=== PATIENT | female | born 1970 | race Caucasian/White ===

== ENCOUNTER 2016-07-27 19:07 | Inpatient (IN) | payer OTHER, MEDICARE ==
[~2016-07-27] VITALS: Ht 162.6 cm; Wt 86.2 kg
--- NOTE | 2016-07-27 20:17 | ED GENERAL ADULT ---
History of Present Illness General Chief Complaint: General Adult Stated Complaint: DIOGNOSED WITH STAPH INFECTION AT [facility], NO RELIE Source: patient, family Exam Limitations: history of tbi Vital Signs & Intake/Output Vital Signs & Intake/Output Vital Signs Date Time Temp Pulse Resp B/P Pulse O2 O2 Flow FiO2 Ox Delivery Rate 07/29 1424 97.8 72 18 120/80 94 Room Air 07/29 1023 112/86 07/29 0703 97.6 67 20 130/80 98 Room Air 07/28 2205 98.3 79 20 110/64 96 Room Air ED Intake and Output 07/29 0000 07/28 1200 Intake Total 1370 340 Output Total Balance 1370 340 Intake, IV 170 100 Intake, Oral 1200 240 Patient 190 lb Weight Allergies Coded Allergies: Penicillins (Severe, HIVES 07/27/16) acetaminophen (From Vicodin) (Severe, ANAPHYLAXIS 07/27/16) hydrocodone (From Vicodin) (Severe, ANAPHYLAXIS 07/27/16) Sulfa (Sulfonamide Antibiotics) (UNKNOWN 07/27/16) morphine (UNKNOWN 07/27/16) peach (UNKNOWN 07/27/16) Triage Note: PT TO TRIAGE FOR EVAL OF CELLULITIS TO HER HEAD AND FACE. PT WAS DIAGNOSED WITH STAPH INFECTION AT [facility] YESTERDAY, AND PLACED ON CLINDOMYCIN. ALSO PT C/O WOUND TO ABDOMEN x1WEEK, NOT VISUALISED IN [place]. TEMP 101.1 IN TRIAGE. Triage Nurses Notes Reviewed? yes HPI: Patient is a 46-year-old female presents for evaluation of cellulitis to her forehead. Patient reports that she felt a small spot between her eyebrows on Thursday. Noticed redness and swelling yesterday was seen at a walk-in clinic and diagnosed with cellulitis and prescribed clindamycin. Patient started taking clindamycin today, has taken 2 doses. Cellulitis has been spreading to the diffuse forehead and into her hair. Fever of 101.5 at home. Patient has been alternating Tylenol and ibuprofen with no improvement of fevers or pain. Pain is currently severe. Patient also reports a lesion to her upper abdomen that has been intermittently using purulent drainage. Patient noticed abdominal lesion over the past 1 week. (DILSHAD GOODE,NEGAR) Reconcile Medications Albuterol Sulfate (Proair Hfa) 90 MCG HFA.AER.AD 2 PUF INH Q4-6 PRN PRN ASTHMA (Reported) Amlodipine Besylate 10 MG TABLET 1 TAB PO DAILY HYPERTENSION (Reported) Budesonide/Formoterol Fumarate (Symbicort 160-4.5 Mcg Inhaler) 160 MCG-4.5 MCG/ ACTUATION HFA.AER.AD 2 PUF INH BID ASTHMA (Reported) Clindamycin HCl 300 MG CAPSULE 1 TAB PO Q8 FACE INFECTION Diphenhydramine HCl (Benadryl) 25 MG CAPSULE 1 CAP PO Q8PRN PRN ALLERGY, SWELLING, ITCHY PLEASE TAKE ONE CAPSULE IF YOUR SWELLING/RASH/ITCHING HAS INCREASED. ASSESS EVERY EIGHT HOURS, AFTER TAKING CLINDAMYCIN ANTIBIOTIC. Esomeprazole (Nexium) 40 MG CAPSULE.DR 1 CAP PO DAILY GERD (Reported) Levothyroxine Sodium (Synthroid) 200 MCG TABLET 1 TAB PO DAILY HYPOTHYROIDISM (Reported) Montelukast Sodium 10 MG TABLET 1 TAB PO DAILY ASTHMA (Reported) Oxcarbazepine 150 MG TABLET 1 TAB PO BID BIPOLAR DISORDER (Reported) (GIULIANO LIZARRAGA DO) Past History Travel History Traveled to [place] past 21 day No Medical History Any Pertinent Medical History? see below for history Neurological: CVA, TBI Cardiovascular: hypertension, hyperlipidemia Psychiatric: bipolar disease Endocrine: hypothyroidism History of MRSA: No History of VRE: No History of CDIFF: No Surgical History Surgical History: non-contributory Psychosocial History Who do you live with Significant Other Services at Home None What is your primary language Algerian Tobacco Use: Never used Family History Hx Contributory? No (NEGAR PARK) Review of Systems Review of Systems Constitutional: Reports: chills, fever, malaise. EENTM: Denies: visual changes, throat pain. Respiratory: Reports: no symptoms. Cardiovascular: Reports: no symptoms. GI: Reports: no symptoms. Genitourinary: Reports: no symptoms. Musculoskeletal: Reports: muscle pain. Skin: Reports: see HPI. Neurological/Psychological: Reports: headache. Hematologic/Endocrine: Reports: no symptoms. Immunologic/Allergic: Reports: no symptoms. (NEGAR PARK) Physical Exam Physical Exam General Appearance: alert, awake Head: erythema, warmth, tenderness to diffuse forehead. No fluctuance Eyes: Bilateral: normal appearance, PERRL, EOMI. Ears, Nose, Throat: hearing grossly normal Neck: normal inspection, supple, full range of motion Respiratory: no respiratory distress Cardiovascular: regular rate/rhythm Gastrointestinal: soft, 0.5cm scabbed lesion mid upper abdomen. No erythema, no drainage, no fluctance. Positive tenderness to lesion Back: normal inspection, normal range of motion Extremities: normal inspection, normal capillary refill, normal range of motion, no edema Neurologic/Psych: awake, alert, oriented x 3, normal gait, normal mood/affect Skin: 0.5 cm scabbed lesion mid abdomen. No erythema or drainage. Forehead erythema, warmth, tenderness. minimal upper eyelid edema bilaterally. Lymphatic: no anterior cervical denia Core Measures ACS in differential dx? No CVA/TIA Diagnosis: No Severe Sepsis Present: No Septic Shock Present: No (DILSHAD GOODE,NEGAR) Progress Differential Diagnoses I considered the following diagnoses in my evaluation of the patient: cellulitis , abscess, osteomyelitis, sinusitis Plan of Care: Orders Procedure Date/time Status URINALYSIS 07/29 1138 Complete Discharge Patient 07/29 UNK Active Lab Add-on Test 07/29 UNK Active ANTISTREPTOLYSIN 07/28 0600 Active Laboratory Tests 07/29/16 1212: Urine Color YEL, Urine Clarity HAZY H, Urine pH 6.5, Ur Specific Forman 1.010, Urine Protein NEG, Urine Ketones NEG, Urine Nitrite NEG, Urine Bilirubin NEG, Urine Urobilinogen 0.2, Ur Leukocyte Esterase NEG, Ur Microscopic SEDIMENT EXAMINED, Urine RBC RARE, Urine WBC 1-3 H, Ur Epithelial Cells MANY H, Urine Bacteria FEW H, Urine Mucus FEW, Urine Hemoglobin SMALL H, Urine Glucose NEG 07/29/16 0710: CBC w Diff NO MAN DIFF REQ, RBC 4.06 L, MCV 93.2, MCH 31.4 H, RDW 13.6, MPV 8.7, Gran % 66.4, Lymphocytes % 24.9, Monocytes % 6.8, Eosinophils % 1.6, Basophils % 0.3, Absolute Granulocytes 5.6, Absolute Lymphocytes 2.1, Absolute Monocytes 0.6, Absolute Eosinophils 0.1, Absolute Basophils 0, PUBS MCHC 33.7 2200: Discussed with and seen by Dr. Lizarraga: consider rust puffy tumor, recommend ct for further characterization Patient became nauseous from Dilaudid. Improved with Zofran. Results of labs and ct scan discussed with patient and her daughter. Discussed with Dr. Nichols for admission. (DILSHAD GOODE,NEGAR) Diagnostic Imaging: Viewed by Me: CT Scan. Discussed w/RAD: CT Scan. Radiology Impression: PATIENT: TIANNA HATHAWAY PRESENT AGE: 46 PATIENT ACCOUNT NO: [id number] : 70 LOCATION: [facility] ORDERING PHYSICIAN: NEGAR GOODE SERVICE DATE: 07/27/16 EXAM TYPE: CAT - CT MAXILLOFACIAL W CONT EXAMINATION: CT MAXILLOFACIAL WITH CONTRAST CLINICAL INFORMATION: Fevers. Erythema and swelling of the forehead. Facial cellulitis. Evaluate for an abscess. COMPARISON: No relevant prior studies are available for comparison. TECHNIQUE: Multidetector helical imaging was performed in the axial plane with generation of coronal and sagittal reformatted images. The examination was performed after the administration of 94 mL of Optiray 320 intravenous contrast DLP: 656.34 mGy-cm FINDINGS: FRONTAL SINUSES AND DRAINAGE PATHWAYS: Normal. MAXILLARY SINUSES AND DRAINAGE PATHWAYS: A small mucous retention cyst versus polyp is noted at the floor of the left maxillary sinus. Otherwise normal. ETHMOID SINUSES: Normal. SPHENOID SINUSES AND DRAINAGE PATHWAYS: Normal. ADDITIONAL RELEVANT FINDINGS: The ostiomeatal complexes are well-aerated. The lamina papyracea are intact. The nasal passages are clear. The carotid canals are normally covered by bone. The ethmoid roofs are symmetric. No periapical disease is seen. The TMJs and orbits are normal. The visualized mastoid air cells are clear. Limited evaluation demonstrates no acute intracranial findings. There is mild subcutaneous edema anterior to the frontal bone. There is no organized or enhancing fluid collection to suggest an abscess. IMPRESSION: 1. Mild subcutaneous stranding anterior to the frontal bone which could represent minimal cellulitis in the appropriate clinical setting. No associated fluid collection or abscess. No abnormal enhancement. 2. Otherwise maxillofacial CT examination. DICTATED BY: CLAYTON FLYNN MD DATE/TIME DICTATED:07/27/162243 WEB MARKETING STRATEGIST:SRIDEVI DATE/TIME TRANSCRIBED:2243 CONFIDENTIAL, DO NOT COPY WITHOUT APPROPRIATE AUTHORIZATION. < Electronically signed in Other Vendor System> SIGNED BY: CLAYTON FLYNN MD 07/27/16 8235 Initial ED EKG: none ([place] P[place]) Departure Departure Time of Disposition: 2305 Disposition: STILL A PATIENT Condition: Stable Clinical Impression Primary Impression: Facial cellulitis Referrals: CORY PEPE MD (PCP/Family) Departure Forms: Customer Survey General Discharge Information Admission Note Spoke With: LORI NICHOLS MD Documentation of Exam: Documentation of any treatments & extenuating circumstances including Concerns Regarding Discharge (functional status, medication knowledge or non-compliance, living conditions, etc.) that warrant an admission rather than observation: IV antibiotics, consider ID consultation, if continues to worsen despite IV antibiotics then consider surgical consultation ([place]) Departure Prescriptions: Current Visit Scripts Clindamycin HCl 1 TAB PO Q8 #16 CAP Diphenhydramine HCl (Benadryl) 1 CAP PO Q8PRN PRN ALLERGY, SWELLING, ITCHY #20 CAP PLEASE TAKE ONE CAPSULE IF YOUR SWELLING/RASH/ITCHING HAS INCREASED. ASSESS EVERY EIGHT HOURS, AFTER TAKING CLINDAMYCIN ANTIBIOTIC. PA/LIEUTENANT FIREFIGHTER Co-Sign Statement Statement: ED Attending supervision documentation- [x I saw and evaluated the patient. I have also reviewed all the pertinent lab results and diagnostic results. I agree with the findings and the plan of care as documented in the PA's/LIEUTENANT FIREFIGHTER's documentation. [] I have reviewed the ED Record and agree with the PA's/LIEUTENANT FIREFIGHTER's documentation. [] Additions or exceptions (if any) to the PAs/LIEUTENANT FIREFIGHTER's note and plan are summarized below: [] (GIULIANO LIZARRAGA DO) Critical Care Note Critical Care Note Critical Care Time: non-applicable ([place]) Absolute Eosinophils 0, Absolute Basophils 0, PUBS MCHC 33.4 07/27/162335: Lactic Acid 0.6 L 07/27/162116: Anion Gap 14, Estimated GFR > 60, BUN/Creatinine Ratio 14.3, Glucose 145 H, Lactic Acid 2.1, Calcium 9.0, Total Bilirubin 0.5, AST 27, ALT 35, Alkaline Phosphatase 141 H, Total Protein 7.4, Albumin 4.0, Globulin 3.4, Albumin/ Globulin Ratio 1.2 07/27/162103: CBC w Diff MAN DIFF ORDERED, RBC 4.73, MCV 94.2, MCH 31.5 H, RDW 13.7, MPV 8.7, Gran % 89.8 H, Lymphocytes % 5.8 L, Monocytes % 3.9, Eosinophils % 0.1, Basophils % 0.4, Absolute Granulocytes 18.1 H, Absolute Lymphocytes 1.2, Absolute Monocytes 0.8 H, Absolute Eosinophils 0, Absolute Basophils 0.1, Platelet Estimate ADEQUATE, Normocytic RBCs VERIFIED, Normochromic RBCs VERIFIED , PUBS MCHC 33.5 Microbiology 07/28 0940 URINE ROUT: Urine Culture - RECD 07/27 2116 BLOOD: Blood Culture - RES 07/27 2102 BLOOD: Blood Culture - RES 2199: Discussed with and seen by Dr. Lizarraga: consider rust puffy tumor, recommend ct for further characterization Patient became nauseous from Dilaudid. Improved with Zofran. Results of labs and ct scan discussed with patient and her daughter. Discussed with Dr. Nichols for admission. (NEGAR PARK) Departure Departure Time of Disposition: 2305 Disposition: STILL A PATIENT Condition: Stable Clinical Impression Primary Impression: Facial cellulitis Referrals: CORY PEPE MD (PCP/Family) Departure Forms: Customer Survey General Discharge Information Admission Note Spoke With: LORI NICHOLS MD Documentation of Exam: Documentation of any treatments & extenuating circumstances including Concerns Regarding Discharge (functional status, medication knowledge or non-compliance, living conditions, etc.) that warrant an admission rather than observation: IV antibiotics, consider ID consultation, if continues to worsen despite IV antibiotics then consider surgical consultation ([place]) PA/LIEUTENANT FIREFIGHTER Co-Sign Statement Statement: ED Attending supervision documentation- [x I saw and evaluated the patient. I have also reviewed all the pertinent lab results and diagnostic results. I agree with the findings and the plan of care as documented in the PA's/LIEUTENANT FIREFIGHTER's documentation. [] I have reviewed the ED Record and agree with the PA's/LIEUTENANT FIREFIGHTER's documentation. [] Additions or exceptions (if any) to the PAs/LIEUTENANT FIREFIGHTER's note and plan are summarized below: [] (ELHAM ALBERTS,GIULIANO Merrill) Critical Care Note Critical Care Note Critical Care Time: non-applicable (NE[place] PARK)
[2016-07-27 21:18] LABS: ABSOLUTE BASOPHIL COUNT 0.1 /CUMM (0.0-0.2); ABSOLUTE EOSINOPHIL COUNT 0 /CUMM (0.0-0.7); ABSOLUTE GRANULOCYTE CT 18.1 /CUMM (1.4-6.5); ABSOLUTE LYMPH COUNT 1.2 /CUMM (1.2-3.4); ABSOLUTE MONOCYTE COUNT 0.8 /CUMM (0.10-0.60); BASOPHIL % 0.4 % (0.0-2.0); EOSINOPHIL % 0.1 % (0-5); GRANULOCYTE % 89.8 % (42.2-75.2); HEMATOCRIT 44.6 % (37-47); MEAN CORPUSCULAR HGB 31.5 PG (27.0-31.0); MEAN CORPUSCULAR HGB CONC 33.5 G/DL (33.0-37.0); MEAN CORPUSCULAR VOLUME 94.2 FL (81.0-99.0); MEAN PLATELET VOLUME 8.7 FL (7.4-10.4); PLATELET COUNT 290 /CUMM (130-400); RBC DISTRIBUTION WIDTH 13.7 % (11.5-14.5); RED BLOOD CELL CT 4.73 /CUMM (4.20-5.40); WHITE BLOOD CELL COUNT 20.1 /CUMM (4.8-10.8)
--- NOTE | 2016-07-27 22:56 | CT SCAN REPORT ---
EXAMINATION: CT MAXILLOFACIAL WITH CONTRAST CLINICAL INFORMATION: Fevers. Erythema and swelling of the forehead. Facial cellulitis. Evaluate for an abscess. COMPARISON: No relevant prior studies are available for comparison. TECHNIQUE: Multidetector helical imaging was performed in the axial plane with generation of coronal and sagittal reformatted images. The examination was performed after the administration of 94 mL of Optiray 320 intravenous contrast DLP: 656.34 mGy-cm FINDINGS: FRONTAL SINUSES AND DRAINAGE PATHWAYS: Normal. MAXILLARY SINUSES AND DRAINAGE PATHWAYS: A small mucous retention cyst versus polyp is noted at the floor of the left maxillary sinus. Otherwise normal. ETHMOID SINUSES: Normal. SPHENOID SINUSES AND DRAINAGE PATHWAYS: Normal. ADDITIONAL RELEVANT FINDINGS: The ostiomeatal complexes are well-aerated. The lamina papyracea are intact. The nasal passages are clear. The carotid canals are normally covered by bone. The ethmoid roofs are symmetric. No periapical disease is seen. The TMJs and orbits are normal. The visualized mastoid air cells are clear. Limited evaluation demonstrates no acute intracranial findings. There is mild subcutaneous edema anterior to the frontal bone. There is no organized or enhancing fluid collection to suggest an abscess. IMPRESSION: 1. Mild subcutaneous stranding anterior to the frontal bone which could represent minimal cellulitis in the appropriate clinical setting. No associated fluid collection or abscess. No abnormal enhancement. 2. Otherwise maxillofacial CT examination.
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
[2016-07-28] MEDS ORDERED: SYMBICORT 16010.2 GM INH (00:12)
[2016-07-28] MEDS ORDERED: AMLODIPINE BESY10 M1 PO (00:12)
[2016-07-28] MEDS ORDERED: SYNTHROID200 MCG PO (00:13)
[2016-07-28] MEDS ORDERED: PROAIR HFA8.5 GM INH (00:13)
[2016-07-28] MEDS ORDERED: OXCARBAZEPINE150 M1 PO (00:14)
[2016-07-28] MEDS ORDERED: NEXIUM40 M1 PO (00:14)
[2016-07-28] MEDS ORDERED: MONTELUKAST SOD10 M1 PO (00:15)
[2016-07-28 01:18] VITALS: BP 134/70
[2016-07-28 06:00] VITALS: BP 120/76
--- NOTE | 2016-07-28 06:44 | Admission Certification ---
Admission Certification Certification Statement - As attending physician, I certify that at the time of - admission, based on clinical presentation, severity of - symptoms, need for further diagnostic testing and - therapeutic interventions, and risk of adverse outcomes - without in-hospital treatment, in my clinical assessment, - this patient requires an acute hospital stay for a minimum - of two nights or longer. I have also considered psychsocial - factors such as support system, advanced age, financial - issues, cognitive issues, and failed out-patient treatments, - past re-admission history, safety of patient, and lack of - compliance as applicable. Specific rationale supporting this admission is: Cellulitis of forehead, failed outpatient treatment.
--- NOTE | 2016-07-28 07:44 | PN- Housestaff ---
Subjective Follow-up For: Facial Cellulitis Subjective: Patient seen yvette examined. She is seen sitting upright in bed resting comfortably. She appears to be in no acute distress. She states that she has a moderate frontal headache this morning and denies any associated facial sinus fullness, post nasal drip, cough, or throat pain. She mentioned that her left side of her face felt uncomfortable yesterday with radiation down to her left jaw, but this has since resolved. Her eyes are uncomfortable today and her rash reportedly looks the same. Additionally she denies any blurred/double vision, lightheadedness/dizzynes, fever, chills, chest pain, palpitaitons, shortness of breath, nausea, vomiting, diarrhea. No overnight events reported. Review of Systems Constitutional: Reports: see HPI. Objective Last 24 Hrs of Vital Signs/I&O Vital Signs Date Time Temp Pulse Resp B/P Pulse O2 O2 Flow FiO2 Ox Delivery Rate 07/28 0600 98.9 89 18 120/76 96 Room Air 07/28 0118 98.9 88 18 134/70 94 Room Air 07/28 0035 98.1 86 18 104/61 93 Room Air 07/27 2200 99.5 76 20 115/74 96 07/27 2000 101.1 102 18 110/76 97 Room Air Intake & Output 07/28 1600 07/28 0800 07/28 0000 Intake Total 340 100 Output Total Balance 340 100 Intake, IV 100 100 Intake, Oral 240 Patient 86.183 kg 86.183 kg Weight Physical Exam General Appearance: Alert, Oriented X3, Cooperative, No Acute Distress Other Physical Findings: General - well developed, well nourished obese middle aged woman in no acute distress HEENT - NCAT, PERRLA, EOMI, anicteric sclera, mild erythematous rash localized to forehead/nasal bridge/bilateral eyes without associated drainage/trauma/ deformity or open wounds CVS - S1, S2 w/o m/g/r Resp-Clear to auscultation bilaterally GI-soft, nontender, nondistended, bowel sounds intact Neuro-awake and alert, cranial nerves II through XII grossly intact Extremities-normal pulses, no cyanosis/clubbing/edema Current Medications: Current Medications Sig/Migel Start time Last Medication Dose Route Stop Time Status Admin Albuterol Sulfate 2 PUF Q4-6 PRN PRN 07/28 0130 AC INH Amlodipine Besylate 10 MG DAILY 07/28 1000 AC PO Budesonide/ 2 PUF BID 07/28 1000 AC Formoterol Fumarate INH Clindamycin 600 MG Q8 07/28 0600 AC 07/28 Dextrose/Water 50 ML IV 0504 Clindamycin 600 MG ONCE ONE 07/27 2030 DC 07/27 Dextrose/Water 50 ML IV 07/27 2058 223 Enoxaparin Sodium 40 MG DAILY 07/28 1000 AC SC Hydromorphone HCl 0 .STK-MED ONE 07/27 2037 DC .ROUTE Hydromorphone HCl 1 MG ONCE ONE 07/27 2029 DC 07/27 IV 07/27 2030 211 Ibuprofen 600 MG Q6P PRN 07/28 0130 AC 07/28 PO 0833 Ibuprofen 0 .STK-MED ONE 07/27 2038 DC PO Ibuprofen 800 MG ONCE ONE 07/27 2029 DC 07/27 PO 07/27 Ketorolac 0 .STK-MED ONE 07/27 2232 DC Tromethamine .ROUTE Ketorolac 30 MG ONCE ONE 07/27 2199 DC 07/27 Tromethamine IV 07/27 2200 223 Levothyroxine Sodium 0.2 MG DAILY AC 07/28 0700 AC 07/28 PO 0601 Montelukast Sodium 10 MG DAILY 07/28 1000 AC PO Omeprazole 40 MG DAILY AC 07/28 0700 AC 07/28 PO 0601 Ondansetron HCl 0 .STK-MED ONE 07/27 2146 DC .ROUTE Ondansetron HCl 4 MG ONCE ONE 07/27 2144 DC 07/27 IV 07/27 2145 214 Oxcarbazepine 150 MG BID 07/28 1000 AC PO Sodium Chloride 1,000 ML BOLUS ONE 07/27 2199 DC 07/27 IV 07/27 225 223 Last 24 Hrs of Lab/Evelio Results Last 24 Hrs of Labs/Mics: Laboratory Tests 07/28/16 0655: Anion Gap 7, Estimated GFR > 60, BUN/Creatinine Ratio 13.3, CBC w Diff Pending, WBC Pending, RBC Pending, Hgb Pending, Hct Pending, MCV Pending, MCH Pending, RDW Pending, Plt Count Pending, MPV Pending, Gran % Pending, Lymphocytes % Pending, Monocytes % Pending, Eosinophils % Pending, Basophils % Pending, Absolute Granulocytes Pending, Absolute Lymphocytes Pending, Absolute Monocytes Pending, Absolute Eosinophils Pending, Absolute Basophils Pending, [facility] MCHC Pending 07/27/16 2336: Lactic Acid 0.6 L 07/27/162116: Anion Gap 14, Estimated GFR > 60, BUN/Creatinine Ratio 14.3, Glucose 145 H, Lactic Acid 2.1, Calcium 9.0, Total Bilirubin 0.5, AST 27, ALT 35, Alkaline Phosphatase 141 H, Total Protein 7.4, Albumin 4.0, Globulin 3.4, Albumin/ Globulin Ratio 1.2 07/27/162103: CBC w Diff MAN DIFF ORDERED, RBC 4.73, MCV 94.2, MCH 31.5 H, RDW 13.7, MPV 8.7, Gran % 89.8 H, Lymphocytes % 5.8 L, Monocytes % 3.9, Eosinophils % 0.1, Basophils % 0.4, Absolute Granulocytes 18.1 H, Absolute Lymphocytes 1.2, Absolute Monocytes 0.8 H, Absolute Eosinophils 0, Absolute Basophils 0.1, Platelet Estimate ADEQUATE, Normocytic RBCs VERIFIED, Normochromic RBCs VERIFIED , [facility] MCHC 33.5 Microbiology 07/28 0815 URINE ROUT: Urine Culture - ORD 07/27 2116 BLOOD: Blood Culture - RECD 07/27 2102 BLOOD: Blood Culture - RECD Assessment/Plan Assessment: Patient reports that her rash is no better or worse today while maintained on intravenous clindamycin. She is now reporting a mild frontal headache with associated high discomfort. She does however admit that she does feel better today and denies any new subjective complaints. Patient is to be continued on intravenous antibiotics and monitored for clinical improvement before being discharged on oral antibiotics. Facial cellulitis/Sepsis Patient received oral clindamycin as an outpatient for which she took 2 doses. She denies any symptoms of sinus fullness/tenderness, cough, postnasal drip suggestive of a sinusitis. She denies any associated trauma in the area or history of MRSA. Patient meets criteria for sepsis with temperature 101.1, WBC 20.1, and tachycardia with clinical evidence suggestive of cellulitis. Lactic acid was normal. Axilla facial CT scan demonstrated mild subcutaneous stranding anterior to the frontal bone which could be inside sales representative of a minimal cellulitis with no other associated fluid collection or abscess. -Gen. medicine -Clindamycin 600 mg IV every 8 hours -ID consult -Daily CBC -Follow-up blood cultures COPD/Asthma Denies use of home oxygen. -Symbicort -Singulair 10 mg by mouth daily -Albuterol Bipolar disorder -Trileptal 150 mg PO Daily -Trileptal 300 mg PO QHS Hypothyroidism-Synthroid 200 g by mouth daily Hypertension-amlodipine 10 mg by mouth daily Hyperlipidemia GERD-omeprazole 40 mg by mouth daily Pain plan-ibuprofen Diet-heart healthy diet DVT prophylaxis-Lovenox CODE STATUS-full code Problem List: 1. Facial cellulitis Pain Ratin Pain Location: Facial pain Pain Goal: Pain 4 or less Pain Plan: See assessment Tomorrow's Labs & Rationales: CBC-cellulitis/sepsis
[2016-07-28 08:02] LABS: ABSOLUTE BASOPHIL COUNT 0 /CUMM (0.0-0.2); ABSOLUTE EOSINOPHIL COUNT 0 /CUMM (0.0-0.7); ABSOLUTE GRANULOCYTE CT 11.7 /CUMM (1.4-6.5); ABSOLUTE LYMPH COUNT 1.3 /CUMM (1.2-3.4); ABSOLUTE MONOCYTE COUNT 0.6 /CUMM (0.10-0.60); BASOPHIL % 0.1 % (0.0-2.0); EOSINOPHIL % 0.1 % (0-5); GRANULOCYTE % 85.9 % (42.2-75.2); HEMATOCRIT 40.1 % (37-47); MEAN CORPUSCULAR HGB 31.4 PG (27.0-31.0); MEAN CORPUSCULAR HGB CONC 33.4 G/DL (33.0-37.0); MEAN CORPUSCULAR VOLUME 93.8 FL (81.0-99.0); MEAN PLATELET VOLUME 8.7 FL (7.4-10.4); PLATELET COUNT 264 /CUMM (130-400); RBC DISTRIBUTION WIDTH 13.5 % (11.5-14.5); RED BLOOD CELL CT 4.28 /CUMM (4.20-5.40); WHITE BLOOD CELL COUNT 13.6 /CUMM (4.8-10.8)
[2016-07-28 14:00] VITALS: BP 100/60
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
--- NOTE | 2016-07-28 16:51 | PN- Att Addend ---
Attending MD Review Statement Attending Statement Attending MD Statement: examined this patient, discuss w/resident/PA/CATH LAB MANAGER, agreed w/resident/PA/CATH LAB MANAGER, reviewed EMR data (avail), discussed w/nursing, discussed w/ case mgmt Attending Assessment/Plan: Laboratory Tests 07/28/16 0940: Urinalysis LIGHT H, Urine Color YEL, Urine Clarity HAZY H, Urine pH 6.0, Ur Specific [place] >= 1.030, Urine Protein 30 H, Urine Ketones 15 H, Urine Nitrite NEG, Urine Bilirubin NEG, Urine Urobilinogen 1.0, Ur Leukocyte Esterase NEG, Ur Microscopic SEDIMENT EXAMINED, Urine RBC 5-10 H, Urine WBC 1-3 H, Ur Epithelial Cells MOD H, Urine Bacteria MANY H, Urine Mucus FEW, Urine Hemoglobin MOD H, Urine Glucose NEG 07/28/16 0655: Anion Gap 7, Estimated GFR > 60, BUN/Creatinine Ratio 13.3, CBC w Diff NO MAN DIFF REQ, RBC 4.28, MCV 93.8, MCH 31.4 H, RDW 13.5, MPV 8.7, Gran % 85.9 H, Lymphocytes % 9.6 L, Monocytes % 4.3, Eosinophils % 0.1, Basophils % 0.1, Absolute Granulocytes 11.7 H, Absolute Lymphocytes 1.3, Absolute Monocytes 0.6, Absolute Eosinophils 0, Absolute Basophils 0, PUBS MCHC 33.4 07/27/16 2336: Lactic Acid 0.6 L 07/27/167: Anion Gap 14, Estimated GFR > 60, BUN/Creatinine Ratio 14.3, Glucose 145 H, Lactic Acid 2.1, Calcium 9.0, Total Bilirubin 0.5, AST 27, ALT 35, Alkaline Phosphatase 141 H, Total Protein 7.4, Albumin 4.0, Globulin 3.4, Albumin/ Globulin Ratio 1.2 07/27/162103: CBC w Diff MAN DIFF ORDERED, RBC 4.73, MCV 94.2, MCH 31.5 H, RDW 13.7, MPV 8.7, Gran % 89.8 H, Lymphocytes % 5.8 L, Monocytes % 3.9, Eosinophils % 0.1, Basophils % 0.4, Absolute Granulocytes 18.1 H, Absolute Lymphocytes 1.2, Absolute Monocytes 0.8 H, Absolute Eosinophils 0, Absolute Basophils 0.1, Platelet Estimate ADEQUATE, Normocytic RBCs VERIFIED, Normochromic RBCs VERIFIED , PUBS MCHC 33.5 Vital Signs Date Time Temp Pulse Resp B/P Pulse O2 O2 Flow FiO2 Ox Delivery Rate 07/28 1400 97.5 76 20 100/60 96 Room Air 07/28 0939 72 122/72 07/28 0600 98.9 89 18 120/76 96 Room Air 07/28 0118 98.9 88 18 134/70 94 Room Air 07/28 0035 98.1 86 18 104/61 93 Room Air 07/27 2200 99.5 76 20 115/74 96 07/27 2000 101.1 102 18 110/76 97 Room Air Patient admitted with cellulitis of the forehead it started after she had her eyebrows done by her daughter. Patient does not remember the exact timing of when her eyebrows were done given her previous history of traumatic brain injury. CT scan of the brain done showed soft tissue swelling and cellulitis without any orbital involvement. Currently she is on IV clindamycin and her white count has trended down to 13.6 from 20.1. Patient has worsening of her redness and swelling in the orbital area and in the eyebrows area since this morning. We will consult infectious disease and I spoke with Adan Siu MD and he is going to see the patient and we will follow up on his recommendations. Discussed with patient the care plan.
[2016-07-28 22:05] VITALS: BP 110/64
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
[2016-07-29 07:03] VITALS: BP 130/80
[2016-07-29 08:11] LABS: ABSOLUTE BASOPHIL COUNT 0 /CUMM (0.0-0.2); ABSOLUTE EOSINOPHIL COUNT 0.1 /CUMM (0.0-0.7); ABSOLUTE GRANULOCYTE CT 5.6 /CUMM (1.4-6.5); ABSOLUTE LYMPH COUNT 2.1 /CUMM (1.2-3.4); ABSOLUTE MONOCYTE COUNT 0.6 /CUMM (0.10-0.60); BASOPHIL % 0.3 % (0.0-2.0); EOSINOPHIL % 1.6 % (0-5); GRANULOCYTE % 66.4 % (42.2-75.2); HEMATOCRIT 37.8 % (37-47); MEAN CORPUSCULAR HGB 31.4 PG (27.0-31.0); MEAN CORPUSCULAR HGB CONC 33.7 G/DL (33.0-37.0); MEAN CORPUSCULAR VOLUME 93.2 FL (81.0-99.0); MEAN PLATELET VOLUME 8.7 FL (7.4-10.4); PLATELET COUNT 291 /CUMM (130-400); RBC DISTRIBUTION WIDTH 13.6 % (11.5-14.5); RED BLOOD CELL CT 4.06 /CUMM (4.20-5.40); WHITE BLOOD CELL COUNT 8.4 /CUMM (4.8-10.8)
--- NOTE | 2016-07-29 14:16 | PN- Infect Dx ---
Subjective Subjective: Afebrile. She notes persistent periorbital swelling and discomfort Objective Last 24 Hrs of Vital Signs/I&O Vital Signs Date Time Temp Pulse Resp B/P Pulse O2 O2 Flow FiO2 Ox Delivery Rate 07/29 1023 112/86 07/29 0703 97.6 67 20 130/80 98 Room Air 07/28 2205 98.3 79 20 110/64 96 Room Air 07/28 1400 97.5 76 20 100/60 96 Room Air Intake & Output 07/29 1600 07/29 0800 07/29 0000 Intake Total 450 570 Output Total Balance 450 570 Intake, IV 90 90 Intake, Oral 360 480 Physical Exam Other Physical Findings: She appears comfortable in no acute distress HEENT periorbital edema, with mild erythema and tenderness to palpation; no erythema over the forehead or scalp Neck supple with no adenopathy Lungs are clear Heart regular rhythm with no murmur Results Last 24 Hours of Lab Results: Laboratory Tests 07/29 07/29 1212 0710 Hematology CBC w Diff NO MAN DIFF REQ WBC (4.8 - 10.8 /CUMM) 8.4 RBC (4.20 - 5.40 /CUMM) 4.06 L Hgb (12.0 - 16.0 G/DL) 12.8 Hct (37 - 47 %) 37.8 MCV (81.0 - 99.0 FL) 93.2 MCH (27.0 - 31.0 PG) 31.4 H RDW (11.5 - 14.5 %) 13.6 Plt Count (130 - 400 /CUMM) 291 MPV (7.4 - 10.4 FL) 8.7 Gran % (42.2 - 75.2 %) 66.4 Lymphocytes % (20.5 - 51.1 %) 24.9 Monocytes % (1.7 - 9.3 %) 6.8 Eosinophils % (0 - 5 %) 1.6 Basophils % (0.0 - 2.0 %) 0.3 Absolute Granulocytes (1.4 - 6.5 /CUMM) 5.6 Absolute Lymphocytes (1.2 - 3.4 /CUMM) 2.1 Absolute Monocytes (0.10 - 0.60 /CUMM) 0.6 Absolute Eosinophils (0.0 - 0.7 /CUMM) 0.1 Absolute Basophils (0.0 - 0.2 /CUMM) 0 PUBS MCHC (33.0 - 37.0 G/DL) 33.7 Urines Urine Color (YEL,AMB,STR) YEL Urine Clarity (CLEAR) HAZY H Urine pH (5.0 - 8.0) 6.5 Ur Specific [place] (1.001 - 1.035) 1.010 Urine Protein (NEG,<30 MG/DL) NEG Urine Ketones (NEG) NEG Urine Nitrite (NEG) NEG Urine Bilirubin (NEG) NEG Urine Urobilinogen (0.1 - 1.0 EU/dl) 0.2 Ur Leukocyte Esterase (NEG) NEG Ur Microscopic SEDIMENT EXAMINED Urine RBC (0 - 5 /HPF) RARE Urine WBC (0 - 2 /HPF) 1-3 H Ur Epithelial Cells (NONE,FEW) MANY H Urine Bacteria (NEG/NONE) FEW H Urine Mucus (FEW,NONE) FEW Urine Hemoglobin (NEG) SMALL H Urine Glucose (N MG/DL) NEG Last 24 Hours of Evelio Results: Blood cultures 2 July 27 negative Urine culture July 28 negative Assessment/Plan Impression: Facial cellulitis, overall improved, with temperatures and white blood cell count now normal on Clindamycin Day 2 of treatment, but with increased periorbital inflammation, possibly secondary to dependent edema or a contact dermatitis, though there are no obvious offending agents. Suggestion: 1. Would attempt to clarify antibiotic allergies from her primary care physician and surgeon 2. Would change Clindamycin to 300 mg po every 8 hours to complete a seven-day course of treatment
[2016-07-29] MEDS ORDERED: CLINDAMYCIN HC300 M1 PO (14:17)
[2016-07-29] MEDS ORDERED: BENADRYL25 MG PO (14:19)
[2016-07-29 14:24] VITALS: BP 120/80
--- NOTE | 2016-07-29 14:25 | Patient Discharge Instructions ---
Discharge Instructions General Discharge Information You were seen/treated for: Facial cellulitis Special Instructions: Please take your medication as prescribed, and consider taking one dose of Benadryl if you see increase in rash/itching/swelling over your face. Please return to emergency if symptoms worsen. Please visited primary care physician within 7-10 days of discharge. Diet Continue normal diet: Yes Recommended Diet: Heart Healthy Activity Full Activity/No Limits: Yes Activity Self Limited: Yes Acute Coronary Syndrome Inclusion Criteria At DC or during hospital stay patient has or had the following: ACS DIAGNOSIS No Discharge Core Measures Meds if any: Prescribed or Continued at Discharge Meds if any: NOT Prescribed or Continued at Discharge Congestive Heart Failure Inclusion Criteria At DC or during hospital stay patient has or had the following: CHF DIAGNOSIS No Discharge Core Measures Meds if any: Prescribed or Continued at Discharge Meds if any: NOT Prescribed or Continued at Discharge Cerebrovascular accident Inclusion Criteria At DC or during hospital stay patient has or had the following: CVA/TIA Diagnosis No Discharge Core Measures Meds if any: Prescribed or Continued at Discharge Meds if any: NOT Prescribed or Continued at Discharge Venous thromboembolism Inclusion Criteria VTE Diagnosis No VTE Type NONE VTE Confirmed by (Test) NONE Discharge Core Measures - Per Current guidelines, there needs to be overlap - treatment for the first 5 days of Warfarin therapy. - If discharged on Warfarin prior to 5 days of - overlap therapy, the patient will need to be - assessed for post discharge needs including - *Post discharge parental anticoagulation - *Warfarin and/or parental anticoagulation education - *Follow up date to check INR post discharge At least 5 days overlap therapy as Inpatient No Meds if any: Prescribed or Continued at Discharge Note: Overlap Therapy is Warfarin and Anticoagulant Meds if any: NOT Prescribed or Continued at Discharge
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
--- NOTE | 2016-07-29 15:38 | PN- Att Addend ---
Attending MD Review Statement Attending Statement Attending MD Statement: examined this patient, discuss w/resident/PA/STRING WINDING MACHINE OPERATOR, agreed w/resident/PA/STRING WINDING MACHINE OPERATOR, discussed with family, reviewed EMR data (avail) Attending Assessment/Plan: Laboratory Tests 07/29/16 1212: Urine Color YEL, Urine Clarity HAZY H, Urine pH 6.5, Ur Specific [place] 1.010, Urine Protein NEG, Urine Ketones NEG, Urine Nitrite NEG, Urine Bilirubin NEG, Urine Urobilinogen 0.2, Ur Leukocyte Esterase NEG, Ur Microscopic SEDIMENT EXAMINED, Urine RBC RARE, Urine WBC 1-3 H, Ur Epithelial Cells MANY H, Urine Bacteria FEW H, Urine Mucus FEW, Urine Hemoglobin SMALL H, Urine Glucose NEG 07/29/16 0710: CBC w Diff NO MAN DIFF REQ, RBC 4.06 L, MCV 93.2, MCH 31.4 H, RDW 13.6, MPV 8.7, Gran % 66.4, Lymphocytes % 24.9, Monocytes % 6.8, Eosinophils % 1.6, Basophils % 0.3, Absolute Granulocytes 5.6, Absolute Lymphocytes 2.1, Absolute Monocytes 0.6, Absolute Eosinophils 0.1, Absolute Basophils 0, PUBS MCHC 33.7 Vital Signs Date Time Temp Pulse Resp B/P Pulse O2 O2 Flow FiO2 Ox Delivery Rate 07/29 1424 97.8 72 18 120/80 94 Room Air 07/29 1023 112/86 07/29 0703 97.6 67 20 130/80 98 Room Air 07/28 2205 98.3 79 20 110/64 96 Room Air Patient seen and examined at bedside. Discussed with patient and patient's daughter at bedside the care plan. Patient's cellulitis has improved and redness is almost completely gone from the face, but patient continues to have some periorbital swelling. Repeat urinalysis was checked and did not show any proteinuria. Patient will be discharged home on by mouth clindamycin and when necessary Benadryl as needed. Patient was encouraged to use probiotic yogurt given that she will be on clindamycin but patient says she is normally constipated. Discharge patient home in stable condition. Patient will follow up with PCP.
== END 2016-07-29 16:39 | DRG 872 ==
LOC: ENRESERVTM → ENRESERVDT → ERH 19:07 → 2NA 23:08 → ERHI 23:08 → 2NA 23:08
PROVIDERS: Internal Medicine Hematology & Oncology; Internal Medicine Interventional Cardiology; Physician Assistant; ADMIT Internal Medicine
DX: A41.9 Sepsis, unspecified organism (principal); R47.01 Aphasia; I10 Essential (primary) hypertension; L03.213 Periorbital cellulitis; F31.9 Bipolar disorder, unspecified; Z87.820 Personal history of traumatic brain injury; Z85.850 Personal history of malignant neoplasm of thyroid; J45.909 Unspecified asthma, uncomplicated; J44.9 Chronic obstructive pulmonary disease, unspecified; K21.9 Gastro-esophageal reflux disease without esophagitis; E78.5 Hyperlipidemia, unspecified; E03.9 Hypothyroidism, unspecified
CPT/HCPCS: 2NAP; ERO; 81001; 82436; 86060; 87040; 87086; 96374; 96375; J1200; J1650; J1885; J2405; J3490